=== PATIENT | female | born 1975 | race Caucasian/White ===

== ENCOUNTER 2017-03-30 03:15 | Emergency (ER) | payer OTHER, BC ==
[2017-03-30] MEDS ORDERED: AMOX/CLAV 875 MG/125 MG TABLET PO ONE (04:24)
--- NOTE | 2017-03-30 09:37 | ED Physician Documentation ---
History of Present Illness - Stated complaint Stated Complaint: R FOOT WOUND - Additonal information Additional information: SEE PAPER CHART ([place] [facility]) PD PAST MEDICAL HISTORY - Past Medical History Cardiovascular: Hypertension, High cholesterol, Arrhythmia, Other Neuro: Headache/migraine - Past Surgical History Past Surgical History: No - Present Medications Home Medications: Ambulatory Orders Medication Instructions Recorded Confirmed Flecainide [Tambocar] 50 mg PO Q12H 12/08/12 10/25/15 Hydrocortisone/Pramoxine 10 gm RC TID PRN #0 foam 12/08/12 10/25/15 [Proctofoam-Hc 1%-1% Foam] diltiaZEM CD [Cardizem Cd] 120 mg PO DAILY 12/08/12 10/25/15 Rizatriptan Benzoate [Rizatriptan] 10 mg PO DAILY 10/25/15 10/25/15 - Allergies Allergies/Adverse Reactions: Allergies Allergy/AdvReac Type Severity Reaction Status Date / Time all oral pain medications Allergy Intermediate Nausea Uncoded 10/25/15 13:33 antibiotics Allergy Intermediate Hives Uncoded 10/25/15 13:33 - Social History Does the pt smoke?: No Smoking Status: Never smoker Does the pt drink ETOH?: No Does the pt have substance abuse?: No - Immunizations Immunizations are current?: Yes - POLST Patient has POLST: No Results - Vitals Vitals: Oxygen O2 Source Room air Departure - Departure Disposition: 01 Home, Self Care Discharge Date/Time: 03/30/17 04:30
== END 2017-03-30 04:30 | disposition home or self-care (01) ==
LOC: ED 03:15
DX: S91.301A Unspecified open wound, right foot, initial encounter (principal); I10 Essential (primary) hypertension; E78.00 Pure hypercholesterolemia, unspecified; X58.XXXA Exposure to other specified factors, initial encounter
CPT/HCPCS: 99282; 99283; A9270; 99281

== ENCOUNTER 2017-07-14 13:38 | Emergency (ER) | payer OTHER, BC ==
--- NOTE | 2017-07-14 14:46 | XRAY Preliminary Report ---
Exam: XR CHEST 1 VIEW X-RAY IMPRESSION: Normal single view chest. [facility] SITE ID: [id number]
--- NOTE | 2017-07-14 14:49 | XRAY Report ---
EXAM: CHEST RADIOGRAPHY EXAM DATE: 07/14/2017 02:22 PM. CLINICAL HISTORY: Chest pain for 4 days. COMPARISON: None. TECHNIQUE: 1 view. FINDINGS: Lungs/Pleura: No focal opacities evident. No pleural effusion. No pneumothorax. Mediastinum: Within exam limitations, the cardiomediastinal contour is normal. Other: Cholecystectomy. IMPRESSION: Normal single view chest. [facility] Referring Provider Line: [phone] SITE ID: [id number]
[2017-07-14 14:55] LABS: BASOPHILS # (AUTO) 0.1 10^3/uL (0.0-0.1); BASOPHILS % (AUTO) 1.1 %; HGB - HEMOGLOBIN 14.1 g/dL (12.0-16.0); LYMPHOCYTES # (AUTO) 1.3 10^3/uL (1.5-3.5); LYMPHOCYTES % (AUTO) 26.3 %; MEAN CORPUSCULAR HEMOGLOBIN 31.8 pg (27.0-31.0); MEAN CORPUSCULAR HGB CONC 34.5 g/dL (32.0-36.0); MEAN CORPUSCULAR VOLUME 92.1 fL (81.0-99.0); MEAN PLATELET VOLUME 7.5 fL (7.9-10.8); MONOCYTES # (AUTO) 0.3 10^3/uL (0.0-1.0); MONOCYTES % (AUTO) 7.1 %; NEUTROPHILS # (AUTO) 3.1 10^3/uL (1.5-6.6); NEUTROPHILS % (AUTO) 64.5 %; PLT - PLATELET COUNT 295 10^3/uL (130-450); RED BLOOD COUNT 4.42 10^6/uL (4.20-5.40); RED CELL DISTRIBUTION WIDTH 12.2 % (12.0-15.0); WHITE BLOOD COUNT 4.8 x10^3/uL (4.8-10.8)
[2017-07-14] MEDS ORDERED: ACETAMINOPHEN 325 MG TABLET PO STA (15:01)
[2017-07-14 15:04] LABS: ALBUMIN/GLOBULIN RATIO 1.2 (1.0-2.2); BILIRUBIN,TOTAL 0.4 mg/dL (0.2-1.0); CALCIUM 8.9 mg/dL (8.5-10.3); CREATININE 0.8 mg/dL (0.4-1.0); TOTAL PROTEIN 7.4 g/dL (6.7-8.2)
[2017-07-14 15:15] VITALS: BP 119/69
--- NOTE | 2017-07-14 15:15 | ED Physician Documentation ---
PD HPI CHEST PAIN - Stated complaint Stated Complaint: CHEST DISCOMFORT - Chief complaint Chief Complaint: Cardiac - History obtained from History obtained from: Patient, Family - History of Present Illness Timing - onset: Today, How many days ago (4) Timing - onset during: Rest Timing - duration: Hours (4) Timing - details: Gradual onset Pain level max: 5 Pain level now: 4 Quality: Aching, Sharp Location: Left chest, Right chest Radiation: No: Jaw, Neck, Back, Abdominal, Left upper extremity, Right upper extremity Improved by: Rest Worsened by: Movement, Palpation. No: Exertion, Inspiration Associated symptoms: No: Shortness of air, Diaphoresis, Nausea, Vomiting, Feeling faint / dizzy, General Weakness, Palpitations, Cough Similar symptoms before: Has not had sx before Recently seen: Not recently seen - Additional information Additional information: no leg swelling, no travel, no immobilization, no control, no smoking Review of Systems Ten Systems: 10 systems reviewed and negative Constitutional: denies: Fever, Chills Eyes: denies: Decreased vision Ears: denies: Ear pain Nose: denies: Rhinorrhea / runny nose, Congestion GI: denies: Abdominal Pain, Nausea, Vomiting, Diarrhea Skin: denies: Rash Musculoskeletal: denies: Neck pain, Back pain Neurologic: denies: Focal weakness, Numbness, Headache PD PAST MEDICAL HISTORY - Past Medical History Cardiovascular: Hypertension, High cholesterol, Arrhythmia, Other Neuro: Headache/migraine - Past Surgical History Past Surgical History: No - Present Medications Home Medications: Ambulatory Orders Medication Instructions Recorded Confirmed Flecainide [Tambocar] 50 mg PO Q12H 12/08/12 10/25/15 Hydrocortisone/Pramoxine 10 gm RC TID PRN #0 foam 12/08/12 10/25/15 [Proctofoam-Hc 1%-1% Foam] diltiaZEM CD [Cardizem Cd] 120 mg PO DAILY 12/08/12 10/25/15 Rizatriptan Benzoate [Rizatriptan] 10 mg PO DAILY 10/25/15 10/25/15 - Allergies Allergies/Adverse Reactions: Allergies Allergy/AdvReac Type Severity Reaction Status Date / Time all oral pain medications Allergy Intermediate Nausea Uncoded 07/14/17 14:11 antibiotics Allergy Intermediate Hives Uncoded 07/14/17 14:11 - Social History Does the pt smoke?: No Smoking Status: Never smoker Does the pt drink ETOH?: No Does the pt have substance abuse?: No - Immunizations Immunizations are current?: Yes - POLST Patient has POLST: No PD ED PE NORMAL - Vitals Vital signs reviewed: Yes - General General: Alert and oriented X 3, No acute distress, Well developed/nourished - HEENT HEENT: PERRL, Moist mucous membranes - Neck Neck: Supple, no meningeal sign - Cardiac Cardiac: RRR, Strong equal pulses, Other (TTP across the anterior chest wall. reproduces her pain.) - Respiratory Respiratory: No respiratory distress, Clear bilaterally - Abdomen Abdomen: Soft, Non tender, Non distended - Derm Derm: Warm and dry - Neuro Neuro: Alert and oriented X 3 - Psych Psych: Normal mood, Normal affect Results - Vitals Vitals: Vital Signs - 24 hr 07/14/17 07/14/17 14:08 15:15 Temperature 36.7 C Heart Rate 77 84 Respiratory 17 13 Rate Blood Pressure 122/82 H 119/69 O2 Saturation 100 96 Oxygen O2 Source Room air - EKG (time done) 1346 Rate: Rate (enter#) (81) Rhythm: NSR [place]: Normal Intervals: Normal [place] QRS: Normal Ischemia: Normal ST segments - Labs Labs: Laboratory Tests 07/14/17 07/14/17 07/14/17 14:35 14:35 14:35 WBC 4.8 RBC 4.42 Hgb 14.1 Hct 40.7 MCV 92.1 MCH 31.8 H MCHC 34.5 RDW 12.2 Plt Count 295 MPV 7.5 L Neut # 3.1 Lymph # 1.3 L Roberts # 0.3 Eos # 0.0 Baso # 0.1 Absolute Nucleated RBC 0.00 Nucleated RBC % 0.0 Sodium 138 Potassium 3.7 Chloride 104 Carbon Dioxide 24 Anion Gap 10.0 BUN 13 Creatinine 0.8 Estimated GFR (MDRD) 79 L Glucose 91 Calcium 8.9 Total Bilirubin 0.4 AST 21 ALT 26 Alkaline Phosphatase 63 Troponin I < 0.04 Total Protein 7.4 Albumin 4.0 Globulin 3.4 Albumin/Globulin Ratio 1.2 Lipase 21 L - Rads (name of study) cxr Radiology: Prelim report reviewed, EMP read contemporaneously, See rad report ( no acute disease) PD MEDICAL DECISION MAKING - ED course Complexity details: reviewed results, re-evaluated patient, considered differential (No ST elevation ID, no aortic dissection, no PE, no tension pneumothorax, no aortic aneurysm), d/w patient, d/w family ED course: Patient is a 42-year-old female who presents to the emergency department with what appears to be chest wall pain. Does not appear to be cardiac in origin. No evidence of pulmonary embolus, pneumothorax. No evidence of aortic dissection.She is allergic to most pain medication, but did take Tylenol and this did seem to help her pain. We will have her follow-up with her doctor for further evaluation and care. Patient counseled regarding signs and symptoms for which I believe and urgent re-evaluation would be necessary. Patient with good understanding of and agreement to plan and is comfortable going home at this time This document was made in part using voice recognition software. While efforts are made to proofread this document, sound alike and grammatical errors may occur. Departure - Departure Disposition: 01 Home, Self Care Clinical Impression: Chest wall pain Chest pain Qualifiers: Chest pain type: unspecified Qualified Code(s): R07.9 - Chest pain, unspecified Condition: Good Instructions: ED Chest Pain Atypical Unkn Cause Follow-Up: Izzy Mendez PA-C [Primary Care Provider] - Within 1 week Comments: Your heart tests are normal today. Return if you worsen. This should improve over the next few days. Continue to use Tylenol as needed for pain at home. Forms: Activity restrictions Discharge Date/Time: 07/14/17 15:49
== END 2017-07-14 15:49 | disposition home or self-care (01) ==
LOC: ED 13:38
DX: R07.89 Other chest pain (principal); I10 Essential (primary) hypertension; E78.00 Pure hypercholesterolemia, unspecified
CPT/HCPCS: 36415; 71045; 80053; 83690; 84484; 85025; 93005; 99283; 99284; A9270

== ENCOUNTER 2019-09-06 14:00 | Outpatient (CLI) | payer BC, OTHER ==
--- NOTE | 2019-09-07 02:21 | XRAY Report ---
Reason: LEFT FINGER PAIN Procedure Date: 09/06/2019 Accession Number: [id number] / [id number] Procedure: WCP - Hand 2 View LT CPT Code: Final Report FULL RESULT: EXAM: LEFT HAND RADIOGRAPHY EXAM DATE: 09/06/2019 02:04 PM. CLINICAL HISTORY: LEFT FINGER PAIN. COMPARISON: None. TECHNIQUE: 3 views. FINDINGS: Bones: Normal. No fractures or bone lesions. Joints: Normal. No subluxations. Soft Tissues: Normal. No soft tissue swelling. IMPRESSION: Normal hand radiography. [facility]
== END 2019-09-06 23:59 | disposition home or self-care (01) ==
LOC: DI.WCP 14:00
PROVIDERS: ATTEND Physician Assistant Medical
DX: M79.645 Pain in left finger(s) (principal)

== ENCOUNTER 2020-10-25 08:00 | Outpatient (CLI) | payer BC | END 2020-10-25 23:59 | disposition home or self-care (01) | LOC: LAB.R 08:00 | PROVIDERS: ATTEND Nurse Practitioner | DX: B34.9 Viral infection, unspecified (principal); R07.0 Pain in throat; Z20.822 Contact with and (suspected) exposure to COVID-19 | CPT/HCPCS: 87070 ==

== ENCOUNTER 2023-03-09 14:36 | Outpatient (CLI) | payer BC ==
[2023-03-09 17:57] LABS: BASOPHILS % (AUTO) 0.5 %; EOSINOPHILS % (AUTO) 0.6 %; HCT - HEMATOCRIT 41.8 % (37.0-47.0); HGB - HEMOGLOBIN 14.1 g/dL (12.0-16.0); LYMPHOCYTES # (AUTO) 1.4 10^3/uL (1.5-3.5); LYMPHOCYTES % (AUTO) 21.3 %; MEAN CORPUSCULAR HEMOGLOBIN 31.6 pg (27.0-31.0); MEAN CORPUSCULAR HGB CONC 33.7 g/dL (32.0-36.0); MEAN CORPUSCULAR VOLUME 93.7 fL (81.0-99.0); MEAN PLATELET VOLUME 9.9 fL (7.9-10.8); MONOCYTES # (AUTO) 0.5 10^3/uL (0.0-1.0); MONOCYTES % (AUTO) 7.4 %; NEUTROPHILS # (AUTO) 4.4 10^3/uL (1.5-6.6); PLT - PLATELET COUNT 338 10^3/uL (130-450); RED BLOOD COUNT 4.46 10^6/uL (4.20-5.40); RED CELL DISTRIBUTION WIDTH 11.9 % (12.0-15.0); WHITE BLOOD COUNT 6.3 x10^3/uL (4.8-10.8)
[2023-03-09 18:15] LABS: ALBUMIN 4.2 g/dL (3.2-5.5); ALBUMIN/GLOBULIN RATIO 1.4 (1.0-2.2); BILIRUBIN,TOTAL 0.6 mg/dL (0.2-1.0); CALCIUM 9.3 mg/dL (8.5-10.3); CREATININE 0.9 mg/dL (0.6-1.3); POTASSIUM 3.8 mmol/L (3.5-4.5); TOTAL PROTEIN 7.1 g/dL (6.4-8.9)
[2023-03-09 18:25] LABS: THYROID STIMULATING HORMONE 0.69 uIU/mL (0.34-5.60)
== END 2023-03-09 14:37 | disposition home or self-care (01) ==
LOC: LAB.N 14:36
PROVIDERS: ATTEND Family Medicine
DX: R53.83 Other fatigue (principal); R53.81 Other malaise
CPT/HCPCS: 36415; 80053; 84443; 85025

== ENCOUNTER 2023-05-28 08:54 | Emergency (ER) | payer BC ==
[2023-05-28 09:14] VITALS: BP 132/83; O2SAT 99
--- NOTE | 2023-05-28 09:43 | XRAY Report ---
PROCEDURE: Chest 2 View X-Ray INDICATIONS: Cough. Positive Covid test. TECHNIQUE: 2 views of the chest were acquired. COMPARISON: 07/14/2017. FINDINGS: Surgical changes and devices: None. Lungs and pleura: No pleural effusions or pneumothorax. Lungs are clear. Minimal scarring, right lung base. Mediastinum: Mediastinal contours appear normal. Heart size is normal. Bones and chest wall: No suspicious bony lesions. Overlying soft tissues appear unremarkable. IMPRESSION: No acute cardiopulmonary process. Reviewed by: Jesse Harper MD on 05/28/2023 9:42 AM PST Approved by: Jesse Harper MD on 05/28/2023 9:42 AM PST Station ID: [id number]
[2023-05-28 10:20] LABS: CORONAVIRUS 229E-RESP PCR NOT DETECTED; CORONAVIRUS HKU1-RESP PCR NOT DETECTED; CORONAVIRUS NL63-RESP PCR NOT DETECTED; CORONAVIRUS OC43-RESP PCR NOT DETECTED
[2023-05-28 10:21] LABS: B. PARAPERTUSSIS- RESP PCR PAN NOT DETECTED; B. PERTUSSIS- RESP PCR PANEL NOT DETECTED; C. PNEUMONIAE- RESP PCR PANEL NOT DETECTED; HUMAN METAPNEUMOVIRUS NOT DETECTED; INFLUENZA A- RESP PCR PANEL NOT DETECTED; INFLUENZA B - RESP PCR PANEL NOT DETECTED; M. PNEUMONIAE- RESP PCR PANEL NOT DETECTED; PARAINFLUENZA VIRUS 1 NOT DETECTED; PARAINFLUENZA VIRUS 2 NOT DETECTED; PARAINFLUENZA VIRUS 3 NOT DETECTED; PARAINFLUENZA VIRUS 4 NOT DETECTED; RHINOVIRUS/ENTEROVIRUS NOT DETECTED; RSV- RESP PCR PANEL NOT DETECTED; SARS-CoV-2 -RESP PCR PANEL DETECTED
--- NOTE | 2023-05-28 11:22 | ED Physician Documentation ---
PD HPI URI - Stated complaint Stated Complaint: C+,SORE THROAT,FEVER,SOA - Chief complaint Chief Complaint: Resp - History obtained from History obtained from: Patient - History of Present Illness Timing - onset: How many days ago (4) Timing duration: Days (4) Timing details: Gradual onset, Still present Associated symptoms: Fever, Chills, Sore throat, Dry cough (painful throat and chest with coughing), Dyspnea Contributing factors: Sick contact (tested positive for COVID today, was negative the past 2 days.). No: Travel, Immunocompromised Similar symptoms before: Has not had sx before Review of Systems Constitutional: reports: Fever, Chills, Myalgias Nose: reports: Congestion Throat: reports: Sore throat Respiratory: reports: Dyspnea, Cough, Wheezing GI: reports: Nausea. denies: Vomiting, Diarrhea Skin: denies: Rash Neurologic: denies: Headache PD PAST MEDICAL HISTORY - Past Medical History Past Medical History: Yes Cardiovascular: Hypertension, High cholesterol, Arrhythmia, Other - Past Surgical History Past Surgical History: Yes General: Cholecystectomy Ortho: Shoulder arthroplasty - Present Medications Home Medications: Ambulatory Orders Medication Instructions Recorded Confirmed Flecainide [Tambocar] 50 mg PO Q12H 12/08/12 10/25/15 Hydrocortisone/Pramoxine 10 gm RC TID PRN #0 foam 12/08/12 10/25/15 [Proctofoam-Hc 1%-1% Foam] diltiaZEM CD [Cardizem Cd] 120 mg PO DAILY 12/08/12 10/25/15 Rizatriptan Benzoate [Rizatriptan] 10 mg PO DAILY 10/25/15 10/25/15 Albuterol Sulf [Ventolin Hfa 2 - 3 puffs INH QID #1 each 05/28/23 Inhaler] Benzonatate [Tessalon] 100 mg PO TID PRN #20 cap 05/28/23 HYDROcod/ACETAM 5/325 [[place] 5/325] 1 ea PO Q6H PRN #14 tablet 05/28/23 - Allergies Allergies/Adverse Reactions: Allergies Allergy/AdvReac Type Severity Reaction Status Date / Time all oral pain medications Allergy Intermediate Nausea Uncoded 07/14/17 14:11 antibiotics Allergy Intermediate Hives Uncoded 07/14/17 14:11 - Social History Does the pt smoke?: No Smoking Status: Never smoker Does the pt drink ETOH?: No Does the pt have substance abuse?: No - Immunizations Immunizations are current?: Yes - POLST Patient has POLST: No PD ED PE NORMAL - Vitals Vital signs reviewed: Yes - General General: Alert and oriented X 3, No acute distress, Well developed/nourished - HEENT HEENT: Ears normal, Pharynx benign - Neck Neck: Supple, no meningeal sign, No adenopathy - Cardiac Cardiac: No murmur. No: RRR (regular but tachycardic) - Respiratory Respiratory: No respiratory distress. No: Clear bilaterally (some exp wheezing noted. ) - Abdomen Abdomen: Soft, Non tender Results - Vitals Vitals: Oxygen O2 Source Room air - Labs Labs: Laboratory Tests 05/28/23 09:11 Nasal Adenovirus (PCR) NOT DETECTED Nasal B. parapertussis DNA (PCR) NOT DETECTED Nasal Coronavir 229E PCR NOT DETECTED Nasal Coronavir HKU1 PCR NOT DETECTED Nasal Coronavir NL63 PCR NOT DETECTED Nasal Coronavir OC43 PCR NOT DETECTED Nasal Enterovir/Rhinovir PCR NOT DETECTED Nasal Influenza B PCR NOT DETECTED Nasal Influenza A PCR NOT DETECTED Nasal Parainfluen 1 PCR NOT DETECTED Nasal Parainfluen 2 PCR NOT DETECTED Nasal Parainfluen 3 PCR NOT DETECTED Nasal Parainfluen 4 PCR NOT DETECTED Nasal RSV (PCR) NOT DETECTED Nasal B.pertussis DNA PCR NOT DETECTED Nasal C.pneumoniae (PCR) NOT DETECTED [place] Human Metapneumo PCR NOT DETECTED Nasal M.pneumoniae (PCR) NOT DETECTED Nasal SARS-CoV-2 (PCR) DETECTED A PD Medical Decision Making - ED course Complexity details: considered differential (having viral illness symptoms, with cough and wheezing. Chest pain with coughing. General body aches. ), d/w patient Departure - Departure Disposition: Home, Self Care Condition: Stable Record reviewed to determine appropriate education?: Yes Follow-Up: Izzy Mendez PA-C [Primary Care Provider] - Prescriptions: HYDROcod/ACETAM 5/325 [[place] 5/325] 1 ea PO Q6H PRN #14 tablet PRN Reason: Pain Benzonatate [Tessalon] 100 mg PO TID PRN #20 cap PRN Reason: Cough Albuterol Sulf [Ventolin Hfa Inhaler] 2 - 3 puffs INH QID #1 each Comments: Use the albuterol inhaler 2 to 3 puffs 4 times daily for the next several days to week. Add benzonatate if needed for cough. Stay well-hydrated. Tylenol or ibuprofen if needed for fevers and pains. Add hydrocodone/acetaminophen if needed for worse pain and this can also help with cough suppression. You do have COVID. You have had symptoms long enough to not really get benefit from antiviral medication as it is only works a little bit early in the process. Largely symptom focused treatment. Its potentially positive you have a second virus as well given the several days of illness before testing positive at home. Your chest x-ray is clear without any signs of pneumonia. The viral panel test we did did not show other common viruses. Hopefully her symptoms will be decreasing over the next few days anyway and will be improved symptoms in the meanwhile with the above medications. I sent your prescriptions to [facility] pharmacy. Return if worsening. I am prescribing a short course of narcotic pain medication for you. These are potentially dangerous and addictive medications that should be used carefully. These medications may constipate you. Take an paze-sri-xxvmgsp stool softener such as docusate twice daily with plenty of water while taking these medications. If you go 24 hours without a bowel movement, take lvpt-vqp-oeembcx MiraLAX, per package instructions. Do not drink or drive while taking these medications. If you received narcotic or sedating medications while in the emergency department do not drive for 24 hours. Store this medication in a safe, secure place and out of reach of children. It is a violation of federal law to give or sell this medication to another person or to use in a manner other than prescribed. The ED will not refill narcotic prescriptions, including prescriptions lost or stolen. You can dispose of unwanted medications at the [facility]'s office or at several pharmacies such as [facility]. Forms: PCP List Discharge Date/Time: 05/28/23 12:32
[2023-05-28] MEDS ORDERED: ALBUTEROL 1 PUFF INH STA (11:49)
[2023-05-28] MEDS ORDERED: BENZONATATE 100 MG CAPSULE PO STA (11:50)
[2023-05-28] MEDS ORDERED: HYDROcod/ACETAM 5/325 MG TABLET PO STA (11:50)
== END 2023-05-28 12:32 | disposition home or self-care (01) ==
LOC: ED 08:54
DX: U07.1 COVID-19 (principal)
CPT/HCPCS: 71046; 87633; 94640; 99283; 99284; A9270

== ENCOUNTER 2023-07-12 11:42 | Outpatient (CLI) | payer BC ==
[2023-07-13 07:09] LABS: PROGESTERONE 8.6 ng/mL (.); VITAMIN D 25-HYDROXY 4.4 ng/mL (30.0-100.0)
== END 2023-07-12 11:43 | disposition home or self-care (01) ==
LOC: LAB.N 11:42
PROVIDERS: ATTEND Physician Assistant Medical
DX: F41.9 Anxiety disorder, unspecified (principal); F32.A Depression, unspecified; N92.1 Excessive and frequent menstruation with irregular cycle
CPT/HCPCS: 36415; 82306; 82670; 83001; 83002; 84144

== ENCOUNTER 2023-08-07 03:06 | Emergency (ER) | payer BC ==
--- NOTE | 2023-08-07 03:17 | ED Physician Documentation ---
PD HPI HEENT - Stated complaint Stated Complaint: TOOTH PX - History obtained from History obtained from: Patient - Additional information Additional information: HPI from patient. Patient c/o dental pain since earlier this evening. No inciting event. Gradual onset, constant and steadily worsening. Pain is adjacent to right maxillary 2nd premolar and 1st molar. Denies fever. She says both teeth are broken (not recent). Review of Systems Constitutional: denies: Fever Throat: reports: Dental pain / toothache PD PAST MEDICAL HISTORY - Past Medical History Cardiovascular: Hypertension, High cholesterol, Arrhythmia, Other - Past Surgical History Past Surgical History: Yes General: Cholecystectomy Ortho: Shoulder arthroplasty - Present Medications Home Medications: Ambulatory Orders Medication Instructions Recorded Confirmed Flecainide [Tambocar] 50 mg PO Q12H 12/08/12 10/25/15 Hydrocortisone/Pramoxine 10 gm RC TID PRN #0 foam 12/08/12 10/25/15 [Proctofoam-Hc 1%-1% Foam] diltiaZEM CD [Cardizem Cd] 120 mg PO DAILY 12/08/12 10/25/15 Rizatriptan Benzoate [Rizatriptan] 10 mg PO DAILY 10/25/15 10/25/15 Albuterol Sulf [Ventolin Hfa 2 - 3 puffs INH QID #1 each 05/28/23 Inhaler] Benzonatate [Tessalon] 100 mg PO TID PRN #20 cap 05/28/23 HYDROcod/ACETAM 5/325 [[place] 5/325] 1 ea PO Q6H PRN #14 tablet 05/28/23 Amoxicillin 500 mg PO BID #10 cap 08/07/23 Ondansetron Odt [Zofran Odt] 4 mg TL Q6H PRN #14 tablet 08/07/23 oxyCODONE [Roxicodone] 5 mg PO Q4-6H PRN #14 tablet 08/07/23 - Allergies Allergies/Adverse Reactions: Allergies Allergy/AdvReac Type Severity Reaction Status Date / Time amoxicillin Allergy Itching Verified 08/07/23 03:31 azithromycin [From Zithromax] Allergy Hives Verified 08/07/23 03:31 cephalexin [From Keflex] Allergy Hives Verified 08/07/23 03:31 doxycycline Allergy Hives Verified 08/07/23 04:15 erythromycin base Allergy Hives Verified 08/07/23 04:15 levofloxacin [From Levaquin] Allergy Hives Verified 08/07/23 03:31 Penicillins Allergy Hives Verified 08/07/23 03:31 prednisone Allergy Hives Verified 08/07/23 03:31 sulfamethoxazole Allergy Hives Verified 08/07/23 03:31 [From Bactrim] trimethoprim [From Bactrim] Allergy Hives Verified 08/07/23 03:31 celecoxib [From Celebrex] AdvReac Anxiety Verified 08/07/23 03:31 - Social History Does the pt smoke?: No Smoking Status: Never smoker Does the pt drink ETOH?: No Does the pt have substance abuse?: No - Immunizations Immunizations are current?: Yes - POLST Patient has POLST: No PD ED PE NORMAL - Vitals Vital signs reviewed: Yes - General General: Alert and oriented X 3, No acute distress, Well developed/nourished PD ED PE EXPANDED - HEENT HEENT Visual: 1 - tenderness (tenderness to percussion (with tongue blade); no erythema, swelling, fluctuance. Both teeth (3,4) are missing a cusp on the lingual aspect) Results - Vitals Vitals: Oxygen O2 Source Room air PD Medical Decision Making - ED course Complexity details: considered differential, d/w patient ED course: No evidence of infection on exam but will cover for possible early infection as possible etiology of her dental pain. She has extensive/exhaustive list of allergies to antibiotics but she says amoxicillin is one of the only antibiotics she can tolerate (she says she develops pruritic rash but it is mild and no other symptoms). She is given benadryl as pre-treatment along with 500mg PO amoxicillin. She also says she has side effects from most narcotic/opiate medications but has not had adequate relief of pain with OTC medications. We discussed options and shared decision making is to give oxycodone with zofran. Prescriptions for amoxicillin, oxycodone, and zofran are provided and she is advised to use benadryl 25-50mg PO prior to each dose of amoxicillin. Advised to seek follow up with dentistry; patient says she [place] dentist [place] whose hours include S[place]days and thus she will call in the AM to arrange follow-up. I am prescribing a short course of short-acting opioid pain medication for this patient. I have reviewed the patients [employer] and no concerning findings were noted. I have discussed that the opioids are for short term therapy only, and will not be refilled from the ED. Departure - Departure Disposition: 01 Home, Self Care Clinical Impression: Pain, dental Condition: Good Instructions: ED Tooth Pain Prescriptions: Amoxicillin 500 mg PO BID #10 cap oxyCODONE [Roxicodone] 5 mg PO Q4-6H PRN #14 tablet PRN Reason: Pain >8 Ondansetron Odt [Zofran Odt] 4 mg TL Q6H PRN #14 tablet PRN Reason: Nausea / Vomiting Comments: You were given the first dose of an antibiotic (amoxicillin) in the emergency department along with a dose of Benadryl. You have indicated to me that you h avyamileth had reactions to amoxicillin in the past but these were tolerable, particularly compared to your reactions to nearly all other antibiotic classes available. I have electronically submitted a prescription for a brief course (5 days) of amoxicillin to the [facility] pharmacy in [place]. You should take an antihistamine (such as Benadryl) 45 to 60 minutes before each dose of amoxicillin to minimize adverse reactions. You were also given a dose of oxycodone (narcotic/opiate pain medication) in the emergency department along with an anti-nausea medication (ondansetron). I am also electronically submitting prescriptions for both of these medications to the [facility] pharmacy in [place]. If the side effects of the oxycodone are not controlled with the anti-nausea medication, you can use your Vicodin instead of the oxycodone. Contact your dentist when the office is next open to arrange for next available appointment. I am prescribing a short course of narcotic pain medication for you. These are potentially dangerous and addictive medications that should be used carefully. These medications may constipate you. Take an efny-ivr-wyjkzae stool softener (docusate) twice daily with plenty of water while taking these medications. If you go 24 hours without a bowel movement, take gcif-pkz-opvwwsu miralax, per package instructions. Do not drink or drive while taking these medications. If you received narcotic or sedating medications while in the emergency department, do not drive for 24 hours. Store this medication in a safe, secure place and out of reach of children. It is a violation of federal law to give or sell this medication to another person or to use in a manner other than prescribed. The ED will not refill narcotic prescriptions, including prescriptions lost or stolen. To dispose of unwanted medications: 1. [facility] at [address] in [place] has a medication drop box. They accept prescription medications (in pill form) Wednesday through Wednesday 9:00 a.m. to 5:00 p.m. 2. The [facility] accepts prescription medications (in pill form only) for disposal year round. Call for more information. 3. Contact the [facility] for the next [facility] sponsored prescription drug collection event. , [phone], or [phone]; Forms: PCP List Discharge Date/Time: 08/07/23 05:22
[2023-08-07 03:28] VITALS: BP 139/91; O2SAT 99
[2023-08-07] MEDS: diphenhydrAMINE 25 MG CAPSULE PO STA (04:10)
[2023-08-07] MEDS: AMOXICILLIN 250 MG CAPSULE PO STA (04:10)
[2023-08-07] MEDS: ONDANSETRON ODT 4 MG TABLET TL STA (04:11)
[2023-08-07] MEDS: oxyCODONE 5 MG TABLET PO STA (04:11)
== END 2023-08-07 05:22 | disposition home or self-care (01) ==
LOC: ED 03:06
DX: K08.89 Other specified disorders of teeth and supporting structures (principal); I10 Essential (primary) hypertension; E78.00 Pure hypercholesterolemia, unspecified; Z79.899 Other long term (current) drug therapy; Z88.1 Allergy status to other antibiotic agents; Z88.0 Allergy status to penicillin
CPT/HCPCS: 99283; A9270; Q0162

== ENCOUNTER 2023-08-19 07:45 | Outpatient (CLI) | payer BC | END 2023-08-19 07:46 | disposition home or self-care (01) | LOC: LAB.N 07:45 | PROVIDERS: ATTEND Physician Assistant Medical | DX: E55.9 Vitamin D deficiency, unspecified (principal) | CPT/HCPCS: 36415; 82306 ==

== ENCOUNTER 2023-11-18 09:20 | Outpatient (CLI) | payer BC | END 2023-11-18 09:21 | disposition home or self-care (01) | LOC: LAB.N 09:20 | PROVIDERS: ATTEND Physician Assistant Medical | DX: E55.9 Vitamin D deficiency, unspecified (principal) | CPT/HCPCS: 36415; 82306 ==